=== PATIENT | male | born 1995 | race Caucasian/White ===

== ENCOUNTER 2022-05-23 12:06 | Emergency (ER) | payer SELFPAY ==
[~2022-05-23] VITALS: Ht 175.3 cm; Wt 97.0 kg
[2022-05-23 12:09] VITALS: BP 117/78
[2022-05-23] MEDS ORDERED: KETOROLAC 30MG/ML VIAL IM ONE (14:15)
[2022-05-23] MEDS ORDERED: HYDR-4001 MT (15:00)
[2022-05-23] MEDS ORDERED: AMOX-494 MT (15:00)
[2022-05-23] MEDS ORDERED: IBUP-2029 MT (15:00)
== END 2022-05-23 15:42 | disposition home or self-care (01) ==
LOC: ER 14:49
DX: K08.89 Other specified disorders of teeth and supporting structures (principal)
CPT/HCPCS: 96372; 99283; J1885